=== PATIENT | male | born 2000 | race Caucasian/White ===

== ENCOUNTER 2025-06-14 11:37 | Emergency (ER) | payer OTHER ==
[~2025-06-14] VITALS: Ht 165.1 cm; Wt 66.1 kg
[2025-06-14 12:52] LABS: BASO # 0.0 10^3/uL (0.0-0.2); BASO % 0.4 % (0.0-1.0); EOS # 0.1 10^3/uL (0.0-0.5); EOS % 1.3 % (0.0-3.0); LYMPH # 1.2 10^3/uL (1.5-5.0); LYMPH % 15.5 % (24.0-44.0); MONO # 1.1 10^3/uL (0.0-0.8); MONO % 14.0 % (2.0-8.0); NEUTROPHILS # 5.1 10^3/uL (1.5-8.5); NEUTROPHILS % 68.5 % (36.0-66.0); PLATELET COUNT, AUTOMATED 180 10^3/uL (150-450)
[2025-06-14 13:15] LABS: ALT/SGPT 19 U/L (7.0-40); AST/SGOT 25 U/L (<34); CALCIUM LEVEL 8.8 MG/DL (8.5-10.1); CARBON DIOXIDE LEVEL 29 MMOL/L (20-31); CHLORIDE LEVEL 103 MMOL/L (98-107); CREATININE FOR GFR 1.07 MG/DL (0.70-1.30); GLOMERULAR FILTRATION RATE > 90.0 (>60); POTASSIUM SERUM 4.3 MMOL/L (3.5-5.1); SODIUM LEVEL 140 MMOL/L (136-145)
[2025-06-14] MEDS ORDERED: ISOVUE-370 76% 100 ML VIAL As Ordered ONE (13:22)
[2025-06-14] MEDS: NS (Normal Saline) 0.9% 1,000 ML IV ONE (13:51)
[2025-06-14 15:49] VITALS: BP 121/76; TEMP 99.8; O2SAT 100
== END 2025-06-14 15:53 | disposition home or self-care (01) ==
LOC: M ED 11:37
DX: I88.0 Nonspecific mesenteric lymphadenitis (principal)
CPT/HCPCS: 74177; 80048; 80076; 83690; 85025; 87486; 87507; 87581; 87633; 87798; 96360; 99284; Q9967